=== PATIENT | male | born 1975 | race Caucasian/White ===

== ENCOUNTER 2017-04-05 15:11 | Emergency (ER) | payer OTHER ==
--- NOTE | 2017-04-05 15:24 | PDOC ---
History of Present Illness - General History Source: Patient Exam Limitations: No Limitations - History of Present Illness Initial Comments: 04/05/17 16:43 The patient is a 41 year old male, with a significant past medical history of MS and ADD, who presents to the emergency department with lower quadrant abdominal pain, nausea, and vomiting. The patient reports that for the past few days he has had lower quadrant abdominal pain which is a 7/10 in severity. He describes it as a tender and distended sensation in nature that is intermittent and lasts for a few minutes at a time. Last night he reports multiple episodes of vomiting and believes he may have food poisoning as he just got back from a trip to [facility] on Thursday. He states he is unable to keep any food or water down, denies any diarrhea. The patient reports associated fever, chills, and body aches. He states he took his temperature at home and reported it was 102, presently in the ER his temperature is 99. Denies testicular pain. He denies chest pain, shortness of breath, headache and dizziness. He denies diarrhea and constipation. He denies dysuria, frequency, urgency and hematuria. Allergies: Shrimp, shellfish, contrast dyes, narcotic pain medicines Surgical History: Hernia surgery when he was 1 years old Social history: Never smoked PCP: Dr. Gregory <Mitali Cline - Last Filed: 04/05/17 18:40> <Roman Robbins - Last Filed: 04/05/17 18:56> - General Chief Complaint: Nausea/Vomiting Stated Complaint: AND RIGHT LOWER QUADRANT PAIN Time Seen by Provider: 04/05/17 15:16 Past History <Mitali Cline - Last Filed: 04/05/17 18:40> - Psycho/Social/Smoking Cessation Hx Anxiety: No Suicidal Ideation: No Smoking Status: No Smoking History: Never smoked Number of Cigarettes Smoked Daily: 0 Hx Alcohol Use: No Drug/Substance Use Hx: No Substance Use Type: None <Roman Robbins - Last Filed: 04/05/17 18:56> - Past Medical History Allergies/Adverse Reactions: Allergies Allergy/AdvReac Type Severity Reaction Status Date / Time shellfish derived Allergy Severe Difficulty Verified 04/05/17 15:22 Breathing codeine Allergy Intermediate Hives Verified 04/05/17 15:26 SHRIMP Allergy Severe Swelling Uncoded 04/05/17 15:22 Home Medications: Ambulatory Orders Omeprazole [Prilosec (RX)] 40 mg PO DAILY 05/15/15 Lisdexamfetamine Dimesylate [Vyvanse] 30 mg PO BID 04/05/17 Ondansetron [Zofran -] 4 mg PO TID PRN #14 tablet 04/05/17 Ondansetron [Zofran -] 4 mg PO TID PRN #14 tablet 04/05/17 Review of Systems - Review of Systems Able to Perform ROS?: Yes Comments:: 04/05/17 16:44 CONSTITUTIONAL: +Fever, +Chills, +Body aches No reported: Diaphoresis, Generalized Weakness, Malaise, Loss of Appetite HEENT: No reported: Rhinorrhea, Nasal Congestion, Throat Pain, Throat Swelling, Difficulty Swallowing, Mouth Swelling, Ear Pain, Eye Pain, Visual Changes CARDIOVASCULAR: No reported: Chest Pain, Syncope, Palpitations, Irregular Heart Rate, Lightheadedness, Peripheral Edema RESPIRATORY: No reported: Cough, Shortness of Breath, SOB with Exertion, Orthopnea, Wheezing , Stridor, Hemoptysis GASTROINTESTINAL: +Abdominal pain, +Nausea, +Vomiting No reported: Diarrhea, Constipation, Melena, Hematochezia GENITOURINARY: No reported: Dysuria, Frequency, Urgency, Hesitancy, Flank Pain, Genital Pain MUSCULOSKELETAL: No reported: Myalgia, Arthralgia, Joint Swelling, Back pain, Neck Pain SKIN: No reported: Rash, Itching, Pallor HEMATOLOGIC/IMMUNOLOGIC: No reported: Easy Bleeding, Easy Bruising, Lymphadenopathy, Frequent infections ENDOCRINE: No reported: Unexplained Weight Gain, Unexplained Weight Loss, Heat Intolerance , Cold Intolerance NEUROLOGIC: No reported: Headache, Focal Weakness, Paresthesias, Vertigo, Lightheadedness, Unsteady Gait, Seizure, Mental Status Changes, Incontinence PSYCHIATRIC: No reported: Anxiety, Depression <Mitali Cline - Last Filed: 04/05/17 18:40> *Physical Exam - Vital Signs Last Vital Signs Temp Pulse Resp BP Pulse Ox 99.3 F 102 H 16 112/81 99 04/05/17 15:13 04/05/17 15:13 04/05/17 15:13 04/05/17 15:13 04/05/17 15:13 - Physical Exam Comments: 04/05/17 16:44 GENERAL: The patient is awake, alert, and fully oriented, Nontoxic - in no acute distress. HEAD: Normocephalic, atraumatic. EYES: extraocular movements intact, sclera anicteric, conjunctiva clear. ENT: +Dry mucous membranes Normal voice. NECK: Normal range of motion, No JVD LUNGS: Breath sounds equal, clear to auscultation bilaterally. No wheezes, no rhonchi, no rales. HEART: Regular rate and rhythm, normal S1 and S2 without murmur, rub or gallop. ABDOMEN: Soft, no reproducible tenderness, normoactive bowel sounds. No guarding , no rebound. No masses. No CVA tenderness : circumcised penis, testicles nontender to palpation, non indurated, nroma exam EXTREMITIES: Normal range of motion, no edema. No clubbing or cyanosis. No cords , erythema, or tenderness. NEUROLOGICAL: No facial asymmetry, Normal speech, normal gait. PSYCH: Normal mood, normal affect. SKIN: Warm, Dry, normal turgor. <Mitali Cline - Last Filed: 04/05/17 18:40> Heart Score/ECG Review - ECG Impressions Comment:: 04/05/17 18:00 Twelve-lead EKG was performed and reviewed by me. There is normal sinus rhythm with a normal rate. Rate of 84 The axis is normal. The intervals are normal. There is normal R wave progression There are no ST or T wave abnormalities. Impression: Normal twelve-lead EKG <Roman Robbins - Last Filed: 04/05/17 18:56> ED Treatment Course - LABORATORY CBC & Chemistry Diagram: 04/05/17 15:58 04/05/17 15:58 - ADDITIONAL ORDERS Additional order review: Laboratory Results 04/05/17 15:58 Sodium 134 L Potassium 3.4 L Chloride 99 Carbon Dioxide 25 Anion Gap 10 BUN 23 H Creatinine 0.7 Creat Clearance w eGFR > 60 Random Glucose 120 H Calcium 8.6 Total Bilirubin 1.0 AST 20 ALT 25 Alkaline Phosphatase 60 Total Protein 6.7 Albumin 3.8 04/05/17 15:58 RBC 5.37 MCV 87.5 MCHC 34.2 RDW 12.4 MPV 9.7 Neutrophils % 89.9 H Lymphocytes % 5.4 L Monocytes % 4.3 Eosinophils % 0.0 Basophils % 0.4 - RADIOLOGY Radiograph Interpretation: 04/05/17 18:41 Referring Physician: Roman Robbins Patient Name: Stephen Reed IMAGES: 550 EXAM: CT of the abdomen and pelvis without contrast HISTORY:Abdominal pain in the right lower quadrant. Fever. COMPARISON: None. FINDINGS:Serial transaxial images of the abdomen and pelvis are available without oral or intravenous contrast agent. Sagittal and coronal reformatted imaging is available. Visible portions of the lung bases are within normal limits. No focal abnormality of the liver is seen. The gallbladder is normal. The spleen is normal. There is a large amount of retained food substance of the stomach. The pancreas is normal. The adrenal glands are normal. The kidneys are grossly within normal limits. Neither collecting system is dilated. The urinary bladder is normal. Central prostate calcification is seen. There is a large amount of gas in the rectum. A normal appendix is seen. No inflammation of the colon is seen. No small bowel inflammation is seen. No bowel obstruction is seen. There is no free air or free fluid seen. There is no aneurysmal dilatation of the aorta. No significant adenopathy is appreciated. Spondylosis of the spine is seen without an acute osseous abnormality IMPRESSION: No acute findings. THIS DOCUMENT HAS BEEN ELECTRONICALLY SIGNED Neville Guadarrama MD 04/05/2017 18:26 AXEL Robbins Please call Imaging Student Teacher [phone] ([phone]) with questions. - Medications Given in the ED: ED Medications Discontinued Medications Generic Name Dose Route Start Last Admin Trade Name Freq PRN Reason Stop Dose Admin Sodium Chloride 1,000 mls @ 1,000 mls/hr 04/05/17 15:35 04/05/17 15:59 Normal Saline - IV 04/05/17 16:34 1,000 mls/hr .Q1H ONE Administration Ketorolac Tromethamine 30 mg 04/05/17 15:35 04/05/17 16:00 Toradol Injection - IVPUSH 04/05/17 15:36 30 mg ONCE ONE Administration Ondansetron HCl 4 mg 04/05/17 15:35 04/05/17 16:01 Zofran Injection IVPUSH 04/05/17 15:36 4 mg ONCE ONE Administration <Mitali Cline - Last Filed: 04/05/17 18:40> - LABORATORY CBC & Chemistry Diagram: 04/05/17 15:58 04/05/17 15:58 <Roman Robbins - Last Filed: 04/05/17 18:56> Medical Decision Making - Medical Decision Making 04/05/17 16:20 RLQ pain for several days, associated vomiting yesterday and +rectal temp today to 102. pain seems a bit lower than would be expected for appendicitis, as he localizes it to the R inguinal canal - no notable abd tenderness. normal exam pt does seem worse with hip flexion -?muscular? differential includes appendicits, kidney stones will ck labs, ua toradol, fluids, zofran will likely need imaging A portion of this note was documented by scribe services under my direction. I have reviewed the details of the note, within reason, and agree with the documentation with the following case summary and management plan written by me 04/05/17 18:46 pts lbas reviewed noted for mild leukocytosis ua neg ct neg for acute patholgoy will PO challenge the pt supportive care at home - ?msk pain for his hip/rlq pain with concurrent gastroenteritis? will give zofran rx aryan have pt fith PMD in 2 days I discussed the physical exam findings, ancillary test results and final diagnoses with the patient. I answered all of the patient's questions. The patient was satisfied with the care received and felt comfortable with the discharge plan and treatment plan. The patient will call their primary care physician within 24 hours to arrange follow-up and will return to the Emergency Department with any new, persistent or worsening symptoms. <Roman Robbins - Last Filed: 04/05/17 18:56> *DC/Admit/Observation/Transfer - Attestations Scribe Attestion: 04/05/17 16:45 Documentation prepared by JENNIFER Prince, acting as medical cash poster for Roman Robbins MD. <Mitali Cline - Last Filed: 04/05/17 18:40> - Discharge Dispostion Admit: No <Roman Robbins - Last Filed: 04/05/17 18:56> Diagnosis at time of Disposition: Abdominal pain Qualifiers: Abdominal location: right lower quadrant Qualified Code(s): R10.31 - Right lower quadrant pain - Discharge Dispostion Disposition: HOME Condition at time of disposition: Improved - Referrals Referrals: [facility] [Provider Group] - Patient Instructions Printed Discharge Instructions: DI for Vomiting -- Adult Additional Instructions: Return to the emergency department immediately with ANY new, persistent or worsening symptoms including worsening abdominal pain, fevers, inability to tolerate oral intake, chest pain, shortness of breath or any other concerns. Stay well hydrated. Take zofran as needed for nausea. You MUST call and follow up with your doctor tomorrow. Your emergency department visit is not complete without a followup with your doctor for reevaluation. Please make sure your doctor reviews the results of your emergency evaluation. Print Language: SLOVAK
[2017-04-05] MEDS ORDERED: SODIUM CHLORIDE 1,000 ML IV ONE ×2 (15:35→17:09)
[2017-04-05] MEDS ORDERED: KETOROLAC TROMETHAMINE 30 MG/1 ML VIAL IVPUSH ONE (15:35)
[2017-04-05] MEDS ORDERED: ONDANSETRON 4 MG/2 ML VIAL IVPUSH ONE (15:35)
[2017-04-05] MEDS ORDERED: KETOROLAC TROMETHAMINE 30 MG/1 ML VIAL ONE (15:45)
[2017-04-05] MEDS ORDERED: ONDANSETRON 4 MG/2 ML VIAL ONE (15:45)
[2017-04-05 16:04] VITALS: TEMP 99.3; BMI 27.2
[2017-04-05 16:30] LABS: BASOPHIL 0.4 % (0-2.0); MCHC 34.2 g/dl (32.0-35.9); MEAN CELL VOLUME 87.5 fl (80-96); MEAN PLT VOLUME 9.7 fl (7.5-11.1); NEUTROPHILS 89.9 % (42.8-82.8); PLATELET COUNT 182 K/MM3 (134-434); RDW 12.4 % (11.9-15.9)
[2017-04-05 16:37] LABS: ALBUMIN 3.8 g/dl (3.5-5.0); ALK PHOS 60 U/L (32-92); ANION GAP 10 (8-16); CALCIUM 8.6 mg/dl (8.4-10.2); CO2 25 mmol/L (22-28); CREATININE 0.7 mg/dl (0.6-1.3); GLUCOSE,RANDOM 120 mg/dl (74-106); SGOT/AST 20 U/L (10-42); SGPT/ALT 25 U/L (10-40); TOT PROT 6.7 g/dl (6.4-8.3)
[2017-04-05 17:43] LABS: URINE APPEARANCE Clear; URINE BILIRUBIN Negative (NEGATIVE); URINE BLOOD Negative (NEGATIVE); URINE GLUCOSE (UA) Negative (NEGATIVE); URINE KETONE Negative (NEGATIVE); URINE LEUK ESTERASE Negative (NEGATIVE); URINE NITRITE Negative (NEGATIVE); URINE PROTEIN Negative (NEGATIVE); URINE UROBILINOGEN 0.2 (0.2-1.0)
[2017-04-05 17:44] LABS: URINE COLOR YELLOW
[2017-04-05 18:30] VITALS: BP 97/58; PULSE 72
--- NOTE | 2017-04-06 10:14 | EKG ---
Test Reason : Blood Pressure : / mmHG Vent. Rate : 084 BPM Atrial Rate : 084 BPM P-R Int : 150 ms QRS Dur : 076 ms QT Int : 362 ms P-R-T Axes : 045 050 030 degrees QTc Int : 427 ms NORMAL SINUS RHYTHM NORMAL ECG NO PREVIOUS ECGS AVAILABLE Confirmed by BRUCE WHITTAKER MD ([id number]) on 04/06/2017 10:13:42 AM Referred By: ROSALIA Confirmed By:BRUCE WHITTAKER MD
== END 2017-04-05 19:20 | disposition home or self-care (01) ==
LOC: FER 15:11
PROC: 3E0337Z Introduction of Electrolytic and Water Balance Substance into Peripheral Vein, Percutaneous Approach (ICD-10-PCS; principal; 2017-04-05)
PROC: 3E0333Z Introduction of Anti-inflammatory into Peripheral Vein, Percutaneous Approach (ICD-10-PCS; 2017-04-05)
PROC: 3E033GC Introduction of Other Therapeutic Substance into Peripheral Vein, Percutaneous Approach (ICD-10-PCS; 2017-04-05)
DX: R10.31 Right lower quadrant pain (principal); G35 Multiple sclerosis; F98.8 Other specified behavioral and emotional disorders with onset usually occurring in childhood and adolescence
CPT/HCPCS: 36415; 74176-TC; 80053; 81003; 85025; 93005; 99284-25